=== PATIENT | female | born 1960 | race African-American/Black ===

== ENCOUNTER → 2016-08-05 | Outpatient (CLI) | payer MEDICARE, BC ==
[~2016-08-05] MED LIST: ASPI81TA82 PO; CALC0.25 PO; CARV25TA PO; CHOL50006 PO; CLON-481 PO; DIOV320T PO; FE FCAP3 PO; FLUT1INH INH; FOSI40TA PO; FURO20 PO; GABA300C3 PO; LANTUSP SQ; LEVO75TA3 PO; LINA145C PO; LORTA5 PO; MAGN400T PO; NOVOLOGP2 SQ; PHEN60TA PO; VENTAER INH; ZOCO80TA PO
[2016-08-05 12:19] LABS: AUTOMATED NEUTROPHIL # 6.7 TH/MM3 (1.8-7.7); BASOPHIL % 0.4 % (0.0-2.0); EOSINOPHIL % 0.2 % (0.0-4.0); HEMATOCRIT 40.9 % (35.0-46.0); HEMO FLAGS DIFF FINAL; LYMPHOCYTE # 1.4 TH/MM3 (1.0-4.8); MEAN CELL VOLUME 81.7 FL (80.0-100.0); MEAN CORPUSCULAR HEMOGLOBIN 26.4 PG (27.0-34.0); MEAN CORPUSCULAR HGB CONC 32.3 % (32.0-36.0); MONO % 4.7 % (0.0-8.0); NEUT % 78.7 % (16.0-70.0); RED CELL DISTRIBUTION WIDTH 15.1 % (11.6-17.2); WHITE BLOOD COUNT 8.5 TH/MM3 (4.0-11.0)
[2016-08-05 12:24] LABS: PLATELET COUNT 149 TH/MM3 (150-450)
[2016-08-05 13:10] LABS: ALT (GPT) 41 U/L (10-53); ANION GAP 9 MEQ/L (5-15); AST (GOT) 28 U/L (15-37); BICARBONATE 28.3 MEQ/L (21.0-32.0); BLOOD UREA NITROGEN 31 MG/DL (7-18); CHLORIDE 102 MEQ/L (98-107); GLOMERULAR FILTRATION RATE 33 ML/MIN (>89); GLUCOSE,FASTING 122 MG/DL (74-99); MAGNESIUM 1.9 MG/DL (1.5-2.5); POTASSIUM 3.6 MEQ/L (3.5-5.1); SODIUM (NA) 139 MEQ/L (136-145); URIC ACID 9.6 MG/DL (2.6-6.0)
[2016-08-05 13:20] LABS: ALKALINE PHOSPHATASE 148 U/L (45-117); FREE T4 1.34 NG/DL (0.76-1.46); LDL CHOLESTEROL 90 MG/DL (0-99); TOTAL BILIRUBIN ADULT 0.6 MG/DL (0.2-1.0)
[2016-08-06 23:57] LABS: THYROGLOB ABS LESS THAN 1 IU/mL (< OR = 1)
[2016-08-08 15:06] LABS: ANA SCREEN POS (NEG)
[2016-08-08 23:56] LABS: MYELOPEROXIDASE LESS THAN 1.0 AI (<1.0); PROTEINASE-3 LESS THAN 1.0 AI (<1.0)
[2016-08-09 03:54] LABS: SM ANTIBODY <1.0 NEG AI (<1.0 NEGATIVE); SM/RNP ANTIBODY <1.0 NEG AI (<1.0 NEGATIVE)
== END ==
LOC: OLAB 11:32
PROVIDERS: ATTEND Internal Medicine
DX: N18.3 Chronic kidney disease, stage 3 (moderate) (principal); E11.65 Type 2 diabetes mellitus with hyperglycemia; Z96.41 Presence of insulin pump (external) (internal); Z79.4 Long term (current) use of insulin
CPT/HCPCS: 36415; 80053; 80061; 82043; 82248; 82533; 83735; 84100; 84439; 84443; 84481; 84550; 85025; 85652; 86021; 86038; 86039; 86140; 86147; 86225; 86235; 86376; 86800